=== PATIENT | female | born 1980 | race African-American/Black ===

== ENCOUNTER → 2023-01-23 08:31 | Outpatient (BNVA) | payer OTHER, SELFPAY | PROVIDERS: Visit Provider Physician Assistant ==

== ENCOUNTER 2023-02-14 08:26 | Outpatient (AMB) | payer OTHER, SELFPAY ==
--- NOTE | 2023-02-14 08:29 | MHC.OFFVISWM ---
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 No bariatric provider for any years wants help to reach about 175 lbs. She reports first being concerned about her weight about 2014. No reflux, ocassional nausea no emesis. She lives with her and 2 children. . She works 6 days per week - over 4 jobs. M- F 7a - 3pm then [employer] in evenings. 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 Sometiems doreen [facility] braden She wakes at: 6am bed at 12 - 1 am. Breakfast: 8am - Crystal light. Coffee a few days per week with cream and sugar. 9am - piece of fruit or cracker or toast with butter or PB. Lunch: 11 am - 2pm - sometimes bring food - restaurant 3-4 d/ week. Bowl from [employer], or kids meal with fries . water. Dinner: 5pm -dinner if ate lunch early - (2-4 tomatoes) tomato salad with 6 oz fish or chicken with 6 oz rice. water. 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 Other days may walk/run 3 miles in 40 minutes. 200 - 400 calories BP is high and will discuss with PCP - needs BP monitor at home. Last mammogram: up to date Last pap smear: up to date control method: none SHIELA: 2 ESS:4 GERD0: QOL:50 Physical Exam Const General: cooperative, no acute distress and well developed Nutritional Appearance: obese Orientation/consciousness: patient oriented x3 HEENT Head: Yes normal to inspection Neck Neck: Yes normal visual inspection Thyroid: Thyroid normal Resp Effort & Inspection: normal respiratory effort Auscultation: clear to auscultation bilaterally Cardio Rate: regular rate Rhythm: regular rhythm Heart sounds: S1 normal heart sound present, S2 normal heart sound present and no murmurs GI Inspection: No distended, Yes obesity and Yes scar (multiple laparoscopic scars) Palpation (GI): Soft to palpation, nontender and no guarding Skin General skin exam: no rashes or lesions noted and other (warm and dry) Wounds: no wounds Hair: normal Neuro General: patient oriented x3 Extrem General: Yes no pedal edema and Yes no calf tenderness Psych Attitude: cooperative Thought process: Normal thought process present Thought content: Normal thought content present Insight: Good insight present (Psych) Judgement: Good judgement present (Psych) Assessment & Plan Assessment & Plan (1) Morbid obesity: Code(s): E66.01 - Morbid (severe) obesity due to excess calories Plan: This is a 42 yo woman who is s/p GBP who was 6 months after surgery and never lost adequate weight. She is interested in revison surgery. Blood work, h pylori,, Abd ULS and UGI have been ordered. She is being scheduled for RD and BH initial consultations. She will start SWL classes and watch at 3 classes before her next appt with Erin. Will do h pylori once started meal plan and decreased GERD symptoms. Will call PCP today regarding high BP. Will obtain OR records from [facility]. 1. Adequate sleep of 7-8 hours per night discussed 2. 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 2 d/week - 40 calorie run/walks The importance of avoiding and breast feeding for at least 18 months after bariatric surgery was discussed in the information session and was reinforced today. NEEDS contraceptio if has revision Pt will purchase body composition analyzer (recommended list given to patient) and weight herself weekly. Next appt with me in 3 weeks. Text me with any questions and weekly weights. Patient is morbidly obese and is not considered stable at this time.?I spent a total of 60 minutes reviewing/updating records, examining the patient and counseling the patient on weight management as detailed above. (2) S/P gastric bypass: Code(s): Z98.84 - Bariatric surgery status (3) GERD (gastroesophageal reflux disease): Code(s): K21.9 - Gastro-esophageal reflux disease without esophagitis Coding Level of Care Code New Pt Level 5 (78646) Diagnoses Morbid obesity E66.01 S/P gastric bypass Z98.84 GERD (gastroesophageal reflux disease) K21.9
[2023-02-14 08:36] VITALS: BP 148/94; PULSE 60; TEMP 35.8; O2SAT 95; BMI 40.2
== END 2023-02-14 09:37 | disposition home or self-care (01) ==
PROVIDERS: Visit Provider Physician Assistant
DX: E66.01 Morbid (severe) obesity due to excess calories (principal); Z68.41 Body mass index [BMI] 40.0-44.9, adult; Z98.84 Bariatric surgery status; K21.9 Gastro-esophageal reflux disease without esophagitis
CPT/HCPCS: 99205

== ENCOUNTER → 2023-02-14 08:26 | Outpatient (BNVA) | payer OTHER, SELFPAY | PROVIDERS: Visit Provider Physician Assistant | DX: E66.01 Morbid (severe) obesity due to excess calories (principal); K21.9 Gastro-esophageal reflux disease without esophagitis; Z98.84 Bariatric surgery status; Z68.41 Body mass index [BMI] 40.0-44.9, adult | CPT/HCPCS: 99202 ==

== ENCOUNTER 2023-03-12 11:22 | Outpatient (AMB) | payer OTHER, SELFPAY ==
--- NOTE | 2023-03-12 11:05 | MHC.WMTHER ---
Intake Intake Visit Reasons: VIDEO BH Intake Allergies No Known Allergies Allergy (Verified 01/23/23 08:53) Behavioral Health Assessment Weight Management Therapy Therapy Notes Details Pt is looking to have weight loss surgery to help improve her health and quality of life. She stated that she is tired of being fat . She denied any mental health history however is in therapy to help with life stressors. She has no history of problems with drugs or alcohol, and no history of inpatient psychiatric admissions. Presenting Concerns Referral Source provider Reason for referral weight loss surgery evaluation Precipitating Event obesity Living Situation Current Living Situation Own At risk of losing current housing? No Satisfied with current living situation? Yes Comments Pt lives with her and children ages 7 and 10. Food/Weight/Diet Expectations of change weight loss and maintenance. History/Relationship with food Patient denied any binge eating. She stated that her biggest struggle is sweets, soda in the past, sugar , can go all day without food but will have dessert. Also would skip meals. History/Relationship with weight Pt was 273 at her heaviest. History/Relationship with dieting 2011 GBP in [place] and went down to 199 and then had a baby 6 months later. Pt stated that her weight fluctuates. Binge Eating Do you frequently eat large amounts of food in short periods of time, not feeling physically hungry? No Do you feel out of control when you eat a large amount of food in a short period of time? No Do you eat large amounts of food rapidly and typically alone? No Night Eating Do you wake up at least once during the night to eat? No If you wake up in the night, do you find that it is necessary to eat something in order to fall back asleep? No Do you have little or no appetite in the morning and feel very hungry in the evening, often overeating between dinner and when you go to bed? Yes Social History Family history and relationship Pt is to her second for 18 months and has two children with her previous that she shares custody. Parental/Familial tare weigher obligations two children. Developmental history and status no issues. Social support best friend, clinicians who she is also friends, manager business process, and sister. Cultural/Ethnic information Black Legal Involvement and History Current or historical involvement with the legal system? none reported Education Highest grade completed masters in social work Preferred learning style Auditory, Verbal, Written, Learn by doing and Visual Currently enrolled in educational program? No Interested in further educational program? 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 No Meaningful activities workouts with personal insurance advisor 3x's a week. Financial Situation Describe current financial situation Comfortable and Occasional struggle Financial assistance? None Service Service? No Mental Health and Addiction Treatment Current/Past substance abuse? No Current/Past addictive behavior concerns? No Medical and Physical Health Summary Physical exam in the last year? Yes Pain Screening Current pain? No Pain in the last few months? No Medications Is the patient compliant with medications? Not applicable Does the patient have Vergara Guardian in place? Not applicable Does the patient use complimentary health approaches? No Trauma/Abuse History History of trauma? No Questionnaires PHQ-9 Over the last 2 weeks, how often have you been bothered by any of the following problems? 1. Little interest or pleasure in doing things: not at all 2. Feeling down, depressed, or hopeless: not at all 3. Trouble falling or staying asleep, or sleeping too much: more than half the days 4. Feeling tired or having little energy: more than half the days 5. Poor appetite or overeating: several days 6. Feeling bad about yourself - or that you are a failure or have let yourself or your family down: not at all 7. Trouble concentrating on things, such as reading the newspaper or watching television: not at all 8. Moving or speaking so slowly that other people could have noticed. Or the opposite - being so fidgety or restless that you have been moving around a lot more than usual: not at all 9. Thoughts that you would be better off or of hurting yourself in some way: not at all Total score: 5 Depression Screening Interpretation: Negative Source: Developed by Drs. Iggy Bansal, Pam Crawford, William Ramirez and colleagues, with an educational jackie from [employer]. Binge Eating Scale Group 1 A. I don't feel self-conscious about my wt. or body size when I'm with others. B. I feel concerned about how I look to others, but it normally does not make me fell disappointed with myself C. I do get self-conscious about my appearance and wt. which makes me feel disappointed in myself. D. I feel very self-conscious about my wt. and frequently I feel intense shame and disgust for myself. I try to avoid social contacts because of my self-consciousness. Response Group 1: A Group 2 A. I don't have any difficulty eating slowly in the proper manner. B. Although I seem to gobble down foods, I don't end up feeling stuffed because of eating to much. C. At times, I tend to eat quickly and then, I feel uncomfortably full afterwards. D. I have the habit of bolting down my food, without really chewing it. When this happens I usually feel uncomfortably stuffed because I've eaten to much. Response Group 2: A Group 3 A. I feel capable to control my eating urges when I want to. B. I feel like I have failed to control my eating more than the average person. C. I feel utterly helpless when it comes to feeling in control of my eating urges. D. Because I feel so helpless about controlling my eating I have become very desperate about trying to get control. Response Group 3: A Group 4 A. I don't have the habit of eating when I'm bored. B. I sometimes eat when I'm bored, but often I'm able to get busy and get my mind off food. C. I have a regular habit of eating when I'm bored, but occasionally, I can use some other activity to get my mind off eating. D. I have a strong habit of eating when I'm bored. Nothing seems to help me breath the habit. Response Group 4: B Group 5 A. I'm usually physically hungry when I eat something. B. Occasionally, I eat something on impulse even though I really am not hungry. C. I have the regular habit of eating foods, that I might not really enjoy, to satisfy a hungry feeling even though physically, I don't need the food. D. Although I'm not physically hungry, I get a hungry feeling in my mouth that only seems to be satisfied when I eat a food, like sandwich, that fills my mouth. Sometimes, when I eat the food to satisfy my mouth hunger, I then spit the food out so I won't gain weight. Response Group 5: A Group 6 A. I don't feel any guilt or self-hate after I overeat. B. After I overeat, occasionally I feel guilt or self-hate. C. Almost all the time I experience strong guilt or self-hate after I overeat. Response Group 6: A Group 7 A. I don't lose total control of my eating when dieting even after periods when I overeat. B. Sometimes when I eat a forbidden food on a diet, I feel like I blew it and eat even more. C. Frequently, I have the habit of saying to myself, I've blown it now, why not go all the way, when I overeat on a diet. When that happens I eat more. D. I have a regular habit of starting a strict diets for myself but I break the diets by going on an eating binge. My life seems to be either a feast or famine. Response Group 7: A Group 8 A. I rarely eat so much food that I feel uncomfortably stuffed afterwards. B. Usually about once a month, I each such a quantity of food, I end up feeling very stuffed. C. I have regular periods during the month when I eat large amounts of food, either at mealtime or at snacks. D. I eat so much food that I regularly feel quite uncomfortable after eating and sometimes a bit nauseous. Response Group 8: A Group 9 A. My level of calorie intake does not go up very high or go down very low on a regular basis. B. Sometimes after I overeat, I will try to reduce my caloric intake to almost nothing to compensate for the excess calories I've eaten. C. I have a regular habit of overeating during the night. It seems that my routine is not to be hungry in the morning but overeat in the evening. D. In my adult years, I have had week-long periods where I practically starve myself. This follows periods when I overeat. It seems I live a life of either feast or famine. Response Group 9: A Group 10 A. I usually am able to stop eating when I want to. I know when enough is enough. B. Every so often, I experience a compulsion to eat which I can't seem to control. C. Frequently, I experience strong urges to eat which I seem unable to control, but at other times I can control my eating urges. D. I feel incapable of controlling urges to eat. I have a fear of not being able to stop eating voluntarily. Response Group 10: A Group 11 A. I don't have any problem stopping eating when I feel full. B. I usually can stop eating when I feel full but occasionally overeat leaving me feeling uncomfortably stuffed. C. I have a problem stopping eating once I start and usually I feel uncomfortably stuffed after I eat a meal. D. Because I have a problem not being able to stop eating when I want, I sometimes have to induce vomiting to relieve my stuffed feeling. Response Group 11: A Group 12 A. I seem to eat just as much when I'm with others, Family social gatherings as when I'm by myself. B. Sometimes, when I'm with other persons, I don't eat as much as I want to eat because I'm self-conscious about my eating. C. Frequently, I eat only a small amount of food when others are present, because I'm very embarrassed about my eating. D. I feel so ashamed about overeating that I pick times to overeat when I know no one will see me. I feel like a closet eater. Response Group 12: A Group 13 A. I eat three meals a day with only an occasional between meal snack. B. I eat 3 meals a day, but I also normally snack between meals. C. When I am snacking heavily, I get in the habit of skipping regular meals. D. There are regular periods when I seem to be continually eating, with no planned meals. Response Group 13: A Group 14 A. I don't think much about trying to control unwanted eating urges. B. At least some of the time, I feel my thoughts are pre-occupied with trying to control my eating urges. C. I feel that frequently I spend much time thinking about how much I ate or about trying not to eat anymore. D. It seems to me that most of my waking hours are pre-occupied by thoughts about eating or not eating. I feel like I'm constantly struggling not to eat. Response Group 14: A Group 15 A. I don't think about food a great deal. B. I have strong craving for food but they last only for brief periods of time. C. I have days when I can't seem to think about anything else but food. D. Most of my days seem to be pre-occupied with thoughts about food. I feel like I live to eat. Response Group 15: A Group 16 A. I usually know whether or not I'm physically hungry. I take the right portion of food to satisfy me. B. Occasionally, I feel uncertain about knowing whether or not I'm physically hungry. A these times it's hard to know how much food I should take to satisfy me. C. Even though I might know how many calories I should eat, I don't have any idea what is a normal amount of food for me. Response Group 16: A Binge Eating Score: 1 Score less than 17 Minimal Risk Score between 18-26 Moderate Risk Score between 27-46 High Risk Assessment & Plan Assessment & Plan (1) Adjustment disorder, unspecified: Code(s): F43.20 - Adjustment disorder, unspecified (2) Morbid obesity: Code(s): E66.01 - Morbid (severe) obesity due to excess calories (3) S/P gastric bypass: Code(s): Z98.84 - Bariatric surgery status Plan Patient has no serious mental health barriers. She is cleared for surgery. Telehealth Telehealth Location of provider rendering services: other Location of patient: other Patient Identification confirmed using: Name, : Yes Telehealth method: video Patient verbally consented to treatment: Yes Patient verbally consented to billing insurance company: Yes Patient informed of any privacy concerns related to visit: Yes Minutes spent on Phone/Video with Pt.: 30 Coding Level of Care Code Tele Psy Diag Eval (47245) Diagnoses Adjustment disorder, unspecified F43.20 Morbid obesity E66.01 S/P gastric bypass Z98.84 Time Spent (min) 30
== END 2023-03-12 11:30 | disposition home or self-care (01) ==
LOC: HO.HBST 11:22
PROVIDERS: Visit Provider Counselor Mental Health
DX: F43.20 Adjustment disorder, unspecified (principal); E66.01 Morbid (severe) obesity due to excess calories; Z98.84 Bariatric surgery status
CPT/HCPCS: 90791

== ENCOUNTER → 2023-03-12 11:22 | Outpatient (BNVA) | payer OTHER, SELFPAY | PROVIDERS: Visit Provider Counselor Mental Health ==

== ENCOUNTER 2023-03-14 09:28 | Outpatient (AMB) | payer OTHER, SELFPAY ==
--- NOTE | 2023-03-14 09:38 | A.OFFVIS_ITS ---
Intake VS Expanded 03/14/23 09:46 Height 5 ft 4 in Weight 234 lb 6.4 oz BMI 40.2 BP 175/97 H Blood Pressure Location Rt brachial Blood Pressure Position Sitting Pulse 75 Pulse Source Pulse Oximeter Temp 97.5 F Temperature Source Tympanic Pulse Oximetry 94 Oxygen Delivery Method Room Air Body Fat 100.0 Body Fat Percentage 42.7 Free Fat Mass 134.2 Muscle Mass 127.4 Water Mass 96.0 BMR 1,877 Intake Visit Reasons: (OV) F/U SWL Allergies No Known Allergies Allergy (Verified 03/14/23 09:41) Medication List - Last Reconciled 03/14/23 by Ava Ramos PA-C cholecalciferol (vitamin D3) 10 mcg PO DAILY cyanocobalamin (vitamin B-12) 50 mcg PO DAILY folic acid 1 mg PO DAILY HPI HPI Comments History of Present Illness Details This is the patients second appt for revision of GBP. Starting weight was 234 lbs on 02/14/23. TBWL is 0 lbs Meal plan: started meal plan 2 weeks ago 7:30 am- yogurt, sometimes with Premier shake or shake alone with coffee 11 am - chicken salad or PB sandwich. Cr ystal Light 5pm - pasta with tomato sauce and hambur randy meat. OR PB sandwich, last night pork chop with macaroni and vegetables Crystal Light After dinnner - sugar free jello snacks - of plantain chips or banana Exercise plan: 3d /week of ST with hop strainer. Walk 3miles in 45 minutes - 2 d/ week. Pre op work up completed as follows: SWL classes - 08 appts - dawson Johnson RD appts - missed appt H pylori - not done yet Labs, CXR and ECG - not done yet ULS and UGI - not done yet Assessment & Plan Assessment & Plan (1) Morbid obesity: Code(s): E66.01 - Morbid (severe) obesity due to excess calories Plan: Pt has not started our meal plan yet, is very busy with 4 jobs and 2 children. We discussed easy ways to make the plan work for her. 7:30 - shake 11am - shake (or meal) 3pm - bar or yogurt 7pm - meal of 4oz/4 oz or shake if meal at 11 am. Exercise - no changes for now. Will get labs/CXR/ECG done today and will have ULS and UGI ordereded today. H pylori today Rescheduel appt with Erin and start watching SWL classes. Next appt with me in 3 weeks on telephone. Patient is morbidly obese and is not considered stable at this time. I spent 30minutes in total with patient reviewing/updating records, examining the patient and counseling the patient on weight management as detailed above. (2) S/P gastric bypass: Code(s): Z98.84 - Bariatric surgery status (3) GERD (gastroesophageal reflux disease): Code(s): K21.9 - Gastro-esophageal reflux disease without esophagitis Orders: Orders Complete Blood Count Auto Diff Today E66.01 - Morbid (severe) obesity due to excess calories, K21.9 - Gastro-esophageal reflux disease without esophagitis, Z01.818 - Encounter for other preprocedural examination, Z98.84 - Bariatric surgery status Vitamin B12 and Folate Today E66.01 - Morbid (severe) obesity due to excess calories, K21.9 - Gastro-esophageal reflux disease without esophagitis, Z01.818 - Encounter for other preprocedural examination, Z98.84 - Bariatric surgery status Zinc Today E66.01 - Morbid (severe) obesity due to excess calories, K21.9 - Gastro-esophageal reflux disease without esophagitis, Z01.818 - Encounter for other preprocedural examination, Z98.84 - Bariatric surgery status Comprehensive Met. Panel Today E66.01 - Morbid (severe) obesity due to excess calories, K21.9 - Gastro-esophageal reflux disease without esophagitis, Z01.818 - Encounter for other preprocedural examination, Z98.84 - Bariatric surgery status Vitamin B1 Today E66.01 - Morbid (severe) obesity due to excess calories, K21.9 - Gastro-esophageal reflux disease without esophagitis, Z01.818 - Encounter for other preprocedural examination, Z98.84 - Bariatric surgery status Vitamin A Today E66.01 - Morbid (severe) obesity due to excess calories, K21.9 - Gastro-esophageal reflux disease without esophagitis, Z01.818 - Encounter for other preprocedural examination, Z98.84 - Bariatric surgery status C Reactive Protein Today E66.01 - Morbid (severe) obesity due to excess calories, K21.9 - Gastro-esophageal reflux disease without esophagitis, Z01.818 - Encounter for other preprocedural examination, Z98.84 - Bariatric surgery status Ferritin Today E66.01 - Morbid (severe) obesity due to excess calories, K21.9 - Gastro-esophageal reflux disease without esophagitis, Z01.818 - Encounter for other preprocedural examination, Z98.84 - Bariatric surgery status PTHI Today E66.01 - Morbid (severe) obesity due to excess calories, K21.9 - Gastro-esophageal reflux disease without esophagitis, Z01.818 - Encounter for other preprocedural examination, Z98.84 - Bariatric surgery status TSH reflex Free T4 Today E66.01 - Morbid (severe) obesity due to excess calories, K21.9 - Gastro-esophageal reflux disease without esophagitis, Z01.818 - Encounter for other preprocedural examination, Z98.84 - Bariatric surgery status H Pylori Breath Test Today E66.01 - Morbid (severe) obesity due to excess calories, K21.9 - Gastro-esophageal reflux disease without esophagitis, Z01.818 - Encounter for other preprocedural examination, Z98.84 - Bariatric surgery status US abdomen comp w elastography Today E66.01 - Morbid (severe) obesity due to excess calories, K21.9 - Gastro-esophageal reflux disease without esophagitis, Z01.818 - Encounter for other preprocedural examination, Z98.84 - Bariatric surgery status XR chest 2V Today E66.01 - Morbid (severe) obesity due to excess calories, K21.9 - Gastro-esophageal reflux disease without esophagitis, Z01.818 - Encounter for other preprocedural examination, Z98.84 - Bariatric surgery status ECG 12 lead EKG Today E66.01 - Morbid (severe) obesity due to excess calories, K21.9 - Gastro-esophageal reflux disease without esophagitis, Z01.818 - Encounter for other preprocedural examination, Z98.84 - Bariatric surgery status FL upper GI w air Today E66.01 - Morbid (severe) obesity due to excess calories, K21.9 - Gastro-esophageal reflux disease without esophagitis, Z01.818 - Encounter for other preprocedural examination, Z98.84 - Bariatric surgery status Insulin Today E66.01 - Morbid (severe) obesity due to excess calories, K21.9 - Gastro-esophageal reflux disease without esophagitis, Z01.818 - Encounter for other preprocedural examination, Z98.84 - Bariatric surgery status Lipid Panel Today E66.01 - Morbid (severe) obesity due to excess calories, K21.9 - Gastro-esophageal reflux disease without esophagitis, Z01.818 - Encounter for other preprocedural examination, Z98.84 - Bariatric surgery status IRON PROFILE Today E66.01 - Morbid (severe) obesity due to excess calories, K21.9 - Gastro-esophageal reflux disease without esophagitis, Z01.818 - Encounter for other preprocedural examination, Z98.84 - Bariatric surgery status Vitamin D 25-OH Total Today E66.01 - Morbid (severe) obesity due to excess calories, K21.9 - Gastro-esophageal reflux disease without esophagitis, Z01.818 - Encounter for other preprocedural examination, Z98.84 - Bariatric surgery status Hemoglobin A1c Today E66.01 - Morbid (severe) obesity due to excess calories, K21.9 - Gastro-esophageal reflux disease without esophagitis, Z01.818 - Encounter for other preprocedural examination, Z98.84 - Bariatric surgery status Referrals Nutrition/Dietitian Referral E66.01 - Morbid (severe) obesity due to excess calories, K21.9 - Gastro-esophageal reflux disease without esophagitis, Z01.818 - Encounter for other preprocedural examination, Z98.84 - Bariatric surgery status Behavioral Health Referral E66.01 - Morbid (severe) obesity due to excess calories, K21.9 - Gastro-esophageal reflux disease without esophagitis, Z01.818 - Encounter for other preprocedural examination, Z98.84 - Bariatric surgery status Coding Level of Care Code Est Pt Level 4 (52747) Diagnoses Morbid obesity E66.01 S/P gastric bypass Z98.84 GERD (gastroesophageal reflux disease) K21.9
[2023-03-14 09:46] VITALS: BP 175/97; PULSE 75; TEMP 36.4; O2SAT 94; BMI 40.2
== END 2023-03-14 10:14 | disposition home or self-care (01) ==
PROVIDERS: Visit Provider Physician Assistant
DX: E66.01 Morbid (severe) obesity due to excess calories (principal); Z68.41 Body mass index [BMI] 40.0-44.9, adult; Z90.3 Acquired absence of stomach [part of]; Z98.84 Bariatric surgery status; K21.9 Gastro-esophageal reflux disease without esophagitis
CPT/HCPCS: 99214

== ENCOUNTER 2023-03-14 09:28 | Outpatient (REF) | payer OTHER, SELFPAY ==
--- NOTE | ~2023-03-14 | XR_ITS ---
EXAMINATION: XR CHEST CLINICAL INFORMATION: Obesity. COMPARISON: None available. TECHNIQUE: 2 views of the chest were obtained. FINDINGS: The lungs are clear. The cardiomediastinal silhouette is normal in size. There is no pleural effusion or pneumothorax. No acute osseous abnormality. XR/XR chest 2V IMPRESSION: No acute cardiopulmonary findings.
--- NOTE | 2023-03-14 10:43 | ECG_ITS ---
Test Reason : mor obesity Blood Pressure : / mmHG Vent. Rate : 055 BPM Atrial Rate : 055 BPM P-R Int : 124 ms QRS Dur : 082 ms QT Int : 454 ms P-R-T Axes : 033 038 025 degrees QTc Int : 434 ms Sinus bradycardia Otherwise normal ECG No previous ECGs available Referred By: Ava Ramos Electronically Signed By:FAVIO JOHNSON
[2023-03-14 10:45] LABS: MANUAL DIFF FLAG NO
[2023-03-14 10:58] LABS: Basophils Percent Auto 0.5 % (0-2); Eosinophils Absolute Auto 0.2 X10*3/uL (0.0-0.4); Eosinophils Percent Auto 2.4 % (0-4); Hematocrit 39.4 % (37.0-47.0); Hemoglobin 12.8 g/dl (12.0-16.0); Imm Gran Abs Auto 0.01 X10*3/uL (0.00-0.03); Imm Gran Pct Auto 0.2 % (0.0-0.4); Lymphocytes Absolute Auto 1.1 X10*3/uL (1.2-4.9); Lymphocytes Percent Auto 15.9 % (20-40); Mean Corpuscular HGB Conc 32.5 g/dl (31.0-35.0); Mean Corpuscular Hemoglobin 29.2 pg (27.0-33.0); Mean Corpuscular Volume 89.7 fL (80.0-98.0); Mean Platelet Volume 9.6 fL (9.4-12.3); Monocytes Absolute Auto 0.6 X10*3/uL (0.1-1.2); Monocytes Percent Auto 9.3 % (2-11); Neutrophils Absolute Auto 4.8 x10*3/uL (2.0-8.3); Neutrophils Percent Auto 71.7 % (45-73); Platelet Count 302 X10*3/uL (160-400); Red Blood Count 4.39 X10*6/uL (4.20-5.50); Red Cell Distribution Width 12.2 % (11.0-16.0); White Blood Count 6.7 X10*3/uL (4.8-10.8)
[2023-03-14 11:38] LABS: Estimated Average Glucose 91 mg/dL; Hemoglobin A1c % 4.8 % (<6.0)
[2023-03-14 11:46] LABS: Alanine Aminotransferase 12 U/L (0-31); Albumin Level 3.7 g/dL (3.5-5.0); Alkaline Phosphatase 82 U/L (39-117); Anion Gap 10 (12-20); Aspartate Amino Transferase 16 U/L (5-31); Bilirubin Total 0.5 mg/dL (0.0-1.0); Blood Urea Nitrogen 13 mg/dL (9-16); C Reactive Protein 0.61 mg/dL (< or = 0.50); Calcium 8.8 mg/dL (8.4-10.2); Carbon Dioxide 25 mmol/L (22-29); Chloride 109 mmol/L (96-108); Cholesterol 118 mg/dL (<200); Estimated Glomerular Filt Rate > 60; Glucose Random 87 mg/dL (60-115); HDL Cholesterol 51 mg/dL (>40); Iron 32 mcg/dL (30-160); LDL Cholesterol Calculated 57 mg/dL (<100); Percent Iron Saturation 15 % (15-50); Potassium 4.1 mmol/L (3.3-5.1); Sodium 140 mmol/L (135-145); Total Iron Binding Capacity 212 mcg/dL (228-428); Total Protein 7.4 g/dL (6.5-8.0); Triglycerides 52 mg/dL (<150); Unsaturated Iron Binding 180 ug/dL
[2023-03-14 12:03] LABS: Ferritin 64 ng/mL (10-250); Insulin 7 uU/mL (2-29); TSH reflex Free T4 0.58 uIU/mL (0.32-4.0); Vitamin D 25-OH Total 28.6 ng/mL (>30)
[2023-03-14 12:08] LABS: Folate 5.8 ng/mL (> or = 4.0); Vitamin B12 838 pg/mL (200-900)
[2023-03-15 16:40] LABS: H Pylori Breath Test Negative (Negative)
[2023-03-18 14:38] LABS: Calcium (PTHI) 8.8 mg/dL (8.6-10.2); PTHI 126 pg/mL (16-77)
[2023-03-19 13:08] LABS: Zinc 42 mcg/dL (60-130)
[2023-03-21 06:04] LABS: Vitamin B1 8 nmol/L (8-30)
[2023-03-21 16:53] LABS: Vitamin A 24 mcg/dL (38-98)
== END 2023-03-14 09:29 | disposition home or self-care (01) ==
LOC: HO.LAB 09:28
PROVIDERS: PCP Internal Medicine; Visit Provider Physician Assistant
DX: Z01.818 Encounter for other preprocedural examination (principal); E66.01 Morbid (severe) obesity due to excess calories; K21.9 Gastro-esophageal reflux disease without esophagitis; Z71.3 Dietary counseling and surveillance; Z98.84 Bariatric surgery status; Z79.899 Other long term (current) drug therapy
CPT/HCPCS: 36415; 71046; 80053; 80061; 82306; 82607; 82728; 82746; 83013; 83036; 83525; 83540; 83970; 84425; 84443; 84590; 84630; 85025; 86140; 93005; 99211; 99212

== ENCOUNTER 2023-03-28 14:30 | Outpatient (AMB) | payer OTHER, SELFPAY ==
--- NOTE | 2023-03-28 13:16 | MHC.OFFVISWM ---
Intake VS Expanded 03/28/23 15:06 Height 5 ft 4 in Weight 237 lb 7 oz BMI 40.8 Intake Visit Reasons: VIDEO F/U SWL Allergies No Known Allergies Allergy (Verified 03/14/23 09:41) HPI HPI Comments History of Present Illness Details This is the patients third appt for revision of GBP. Starting weight was 234 lbs on 02/14/23. No weight loss yet. She states sheis hungry all of the time and then eats carbs to fill in between meal times. 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 6 miles in one day Pre op work up completed as follows: SWL classes - BH appts - Elizabeth, cleared RD appts - missed appt, now 04/09 H pylori - negative Labs - vitamin A and D, zinc low, PTH elevated normal calcium CXR and ECG - both normal, bradycardia ULS and UGI - both Nov . Assessment & Plan Assessment & Plan (1) Morbid obesity: Code(s): E66.01 - Morbid (severe) obesity due to excess calories Plan: Preparing for revision of GBP. No wegiht loss yet, hungry and snacking on carbs. Only sleeps 5 hours per night, contributing to hungry and carb cravings. 1. We discussed trying to sleep 7-8 hours per night 2. Have 1 meal, 2 shakes and 2 MR's per day each as close to 3 hours a[art as she can with her work schedule. - Constisten meal times 3. Check calories burned and goal of 2,000 kcal holloway per week. 4. Text me in a few days - whether this meal plan is working better for her and how many calories burning with exercise. Next appt 3 weeks with me , all appts reviewed. Patient is still morbidly obese and is not considered stable at this time. I spent 23 minutes in total speaking with the patient via video conference counseling , reviewing records and charting in patients chart. . (2) S/P gastric bypass: Code(s): Z98.84 - Bariatric surgery status (3) GERD (gastroesophageal reflux disease): Code(s): K21.9 - Gastro-esophageal reflux disease without esophagitis Telehealth Telehealth Location of provider rendering services: practice address Location of patient: address on file Patient Identification confirmed using: Name, : Yes Telehealth method: video Patient verbally consented to treatment: Yes Patient verbally consented to billing insurance company: Yes Patient informed of any privacy concerns related to visit: Yes Coding Level of Care Code Tele Est Pt Level 4 (08048) Diagnoses Morbid obesity E66.01 S/P gastric bypass Z98.84 GERD (gastroesophageal reflux disease) K21.9
[2023-03-28 15:06] VITALS: BMI 40.8
== END 2023-03-28 15:14 | disposition home or self-care (01) ==
LOC: HO.HBS 15:12
PROVIDERS: PCP Internal Medicine; Visit Provider Physician Assistant
DX: E66.01 Morbid (severe) obesity due to excess calories (principal); Z68.41 Body mass index [BMI] 40.0-44.9, adult; Z90.3 Acquired absence of stomach [part of]; Z98.84 Bariatric surgery status; K21.9 Gastro-esophageal reflux disease without esophagitis
CPT/HCPCS: 99213

== ENCOUNTER → 2023-04-09 15:14 | Outpatient (BNVA) | payer OTHER, SELFPAY | PROVIDERS: PCP Internal Medicine; Visit Provider Dietitian, Registered | DX: Z71.3 Dietary counseling and surveillance (principal) | CPT/HCPCS: 97802 ==

== ENCOUNTER 2023-04-25 09:27 | Outpatient (REF) | payer OTHER, SELFPAY ==
--- NOTE | ~2023-04-25 | US_ITS ---
EXAMINATION: US COMPLETE ABDOMEN WITH LIVER ELASTOGRAPHY CLINICAL INFORMATION: Obesity. COMPARISON: None available. TECHNIQUE: Real-time imaging of the abdominal viscera. Noninvasive ultrasound liver fibrosis assessment is performed using Rama ElastPQ point quantification shear wave elastography (2D-SWE) with a C5-2 MHz transducer. Multiple elastography samples are obtained. FINDINGS: PANCREAS: Normal. The visualized pancreatic head and body are normal in appearance. The remainder of the pancreas is obscured from visualization by the overlying bowel gas. ABDOMINAL AORTA: The proximal, middle, and distal aortic segments are normal in caliber. INFERIOR VENA CAVA: Visualized portions are normal. LIVER: Normal. The liver demonstrates normal size, contour and echogenicity. No focal lesion or intrahepatic biliary duct dilatation. The right lobe measures 13.8 cm in length. The left lobe measures 10.5 cm in length. Portal flow is towards the liver (hepatopetal). Shear wave liver elastography median stiffness is 1.47 m/s (reference: normal median stiffness is 1.3 m/s or less). IQR/median stiffness to assess sampling precision is 0.09 (reference: good quality data set is IQR/median stiffness of 0.15 or less). GALLBLADDER: There is a phrygian cap appearance. The gallbladder is physiologically distended without evidence of stones, sludge, polyps, wall thickening or pericholecystic fluid. COMMON BILE DUCT: Normal in caliber measuring 0.4 cm in diameter. RIGHT KIDNEY: At the interpolar aspect, a 1.0 cm benign, simple cyst is seen, which requires no imaging follow-up. No hydronephrosis. No renal calculi or focal parenchymal lesions. The kidney measures 9.8 cm in maximum dimension. LEFT KIDNEY: Normal. No hydronephrosis. No renal calculi or focal parenchymal lesions. The kidney measures 10.9 cm in maximum dimension. SPLEEN: Normal. The spleen measures 9.0 cm in maximum dimension. FREE FLUID: None. US/US abdomen comp w elastography IMPRESSION: Liver elastography: In the absence of other known clinical signs, measurements rule out compensated advanced chronic liver disease. If there are known clinical signs, further testing may be needed for confirmation. REFERENCE: Society of Radiologists in Ultrasound Liver Stiffness Thresholds (2020): LIVER STIFFNESS THRESHOLDS: *Liver Stiffness equal or less than 1.3 m/s: High probability of being normal. *Liver Stiffness less than 1.7 m/s: In the absence of other known clinical signs, rules out compensated advanced chronic liver disease. *Liver Stiffness 1.7-2.1 m/s: Suggestive of compensated advanced chronic liver disease but need further test for confirmation. *Liver Stiffness over 2.1 m/s: Rules in compensated advanced chronic liver disease. *Liver Stiffness over 2.4 m/s: Suggestive of clinically significant portal hypertension. QUALITY OF DATA SET: *IQR/Median value equal or less than 0.15 implies a quality data set. *IQR/Median value over 0.15 implies a poor quality data set. SIGNIFICANT CHANGE FROM PRIOR EXAM: Significant change if liver stiffness measurement is 10% or greater from prior exam. OTHER CONSIDERATIONS: The stage of liver fibrosis may be overestimated in the setting of acute hepatitis, liver inflammation, elevated liver function tests, hepatic vascular congestion, obstructive cholestasis, non-fasting state, and infiltrative diseases such as amyloidosis and lymphoma. In some patients with NAFLD, the liver stiffness thresholds for compensated advanced chronic liver disease may be lower. In causes other than viral hepatitis and NAFLD, liver stiffness thresholds are not well established.
--- NOTE | ~2023-04-25 | FL_ITS ---
EXAMINATION: XR FLUOROSCOPY UPPER GI WITH AIR CLINICAL INFORMATION: Pe-operative evaluation prior to bariatric intervention. Status post gastric bypass in 2010 . COMPARISON: None relevant. TECHNIQUE: Fluoroscopic air contrast upper GI examination was performed utilizing standard techniques with thin and thick barium and effervescent granules. Numerous spot images were obtained. In addition, numerous image hold fluoroscopic cine images were taken. FINDINGS: Dual and single contrast images of the esophagus demonstrate mildly patulous esophagus, otherwise normal in contour and mucosal pattern. No evidence of stricture, mass, or ulcerations identified. Esophageal peristalsis was normal. A small type I hiatal hernia is present. No significant gastroesophageal reflux was seen during the course of the examination and on reflux views. Dual contrast and single contrast images of the stomach demonstrated a ángela-en-Y gastric bypass. The gastrojejunostomy is patent. No apparent complication. The gastric pouch has a normal appearance and size. Barium flows to the gastric pouch into the ángela limb freely. No reflux into the excluded stomach or duodenum. The distal anastomosis is not well evaluated on this exam. The imaged jejunum has a normal fold pattern and caliber. FLUOROSCOPY TIME: 2 minutes 58 seconds Number of Spot Images: 6 Number of cine: 5 DOSE AREA PRODUCT: 2322 uGy-m2 (microgray-meter squared) FL/FL upper GI w air IMPRESSION: 1. Status post gastric bypass. Normal-appearing gastric pouch and gastrojejunostomy. No reflux into the excluded duodenum or stomach. 2. Small type I hiatal hernia. 3. Minimally patulous esophagus, which is otherwise normal. No definite gastroesophageal reflux noted during the course of the exam. This procedure was performed by Nico Shepherd PA-C and supervised by Dr. Frances
== END 2023-04-25 09:28 | disposition home or self-care (01) ==
LOC: HO.US 09:27
PROVIDERS: PCP Internal Medicine; Visit Provider Physician Assistant
DX: Z01.818 Encounter for other preprocedural examination (principal); E66.01 Morbid (severe) obesity due to excess calories; K21.9 Gastro-esophageal reflux disease without esophagitis; Z98.84 Bariatric surgery status
CPT/HCPCS: 74246; 76705; 76981

== ENCOUNTER → 2023-04-25 09:29 | Outpatient (BNV) | payer OTHER, SELFPAY | PROVIDERS: PCP Internal Medicine; Visit Provider Radiology Diagnostic Radiology | DX: E66.01 Morbid (severe) obesity due to excess calories (principal); Z01.818 Encounter for other preprocedural examination | CPT/HCPCS: 74246 ==

== ENCOUNTER 2023-05-01 15:30 | Outpatient (AMB) | payer OTHER, SELFPAY ==
--- NOTE | 2023-05-01 11:18 | MHC.OFFVISWM ---
Intake VS Expanded 05/01/23 15:42 Height 5 ft 4 in Weight 241 lb BMI 41.4 Intake Visit Reasons: VIDEO F/U SWL Allergies No Known Allergies Allergy (Verified 03/14/23 09:41) Medication List - Last Reconciled 05/01/23 by Ava Ramos PA-C amlodipine 5 mg PO DAILY cholecalciferol (vitamin D3) 10 mcg PO DAILY cyanocobalamin (vitamin B-12) 50 mcg PO DAILY folic acid 1 mg PO DAILY vitamin A palmitate 3,000 mcg PO DAILY 2 weeks zinc gluconate 30 mg PO DAILY HPI HPI Comments History of Present Illness Details Pt is preparing for revision of previous GBP. 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 Sleeping 5-6 hours per week. She recently started on amlodipine by her PCP - after ED visit for extreme HTN. Meal plan: feels hungry all the time. In general has 2 shakes and 1 meal per day - divided over 2 eating periods Forgets to eat often Coffee - twice during the day - various times. Shake - 7am (30 minutes) - but only 3-4 days week 10am - shake - will have shake - but then wants to eat 11 am- chicken with vegetables (leftovers), not measuring portion size -6 oz?? 5-6 pm - finish her lunch or a shake if driving Exercise - fitness trainer 3d/ week. was walking outside and now does other activities. We do not have the OR records from [facility] from her GBP yet. Pre op work up completed as follows: SWL classes - ? appts - Elizabeth, dawson RD appts - missed appt, now 04/09, rescheduled to 05/22 H pylori - negative Labs - vitamin A and D, zinc low, PTH elevated normal calcium CXR and ECG - both normal, bradycardia UGI - 1. Status post gastric bypass. Normal-appearing gastric pouch and gastrojejunostomy. No reflux into the excluded duodenum or stomach. 2. Small type I hiatal hernia. 3. Minimally patulous esophagus, which is otherwise normal. No definite gastroesophageal reflux noted during the course of the exam. ULS - not read yet Assessment & Plan Assessment & Plan (1) Morbid obesity: Code(s): E66.01 - Morbid (severe) obesity due to excess calories Plan: S/p GBP with minimal weight loss. Pt has been consistently gaining weight since starting our program. 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 She works with a fitness trainer but is not burning fat. Her pre op workup is completed except for SWL classes and appointments with Erin, but she is far from ready. We discussed ideas for changes she needs to make - declines appts with Elizabeth (she is a provider herslef). She understands that much of what is happening for her is stress related. She will have appt with Erin on 05/22, de 2 weeks later and will re-evaluate her progress at that time. Patient is still morbidly obese and is not considered stable at this time. I spent 30 minutes in total speaking with the patient via video conference counseling , reviewing records and charting in patients chart. . (2) S/P gastric bypass: Code(s): Z98.84 - Bariatric surgery status Telehealth Telehealth Location of provider rendering services: practice address Location of patient: address on file Patient Identification confirmed using: Name, : Yes Telehealth method: voice only Patient verbally consented to treatment: Yes Patient verbally consented to billing insurance company: Yes Patient informed of any privacy concerns related to visit: Yes Coding Level of Care Code Tele Est Pt Level 4 (20718) Diagnoses Morbid obesity E66.01 S/P gastric bypass Z98.84
[2023-05-01 15:42] VITALS: BMI 41.4
== END 2023-05-01 16:10 | disposition home or self-care (01) ==
LOC: HO.HBS 16:02
PROVIDERS: PCP Internal Medicine; Visit Provider Physician Assistant
DX: E66.01 Morbid (severe) obesity due to excess calories (principal); Z98.84 Bariatric surgery status
CPT/HCPCS: 99214

== ENCOUNTER → 2023-05-01 15:30 | Outpatient (BNVA) | payer OTHER, SELFPAY | PROVIDERS: PCP Internal Medicine; Visit Provider Physician Assistant ==

== ENCOUNTER 2023-05-22 15:45 | Outpatient (AMB) | payer OTHER, SELFPAY ==
--- NOTE | 2023-05-22 15:37 | MHC.AMNUTRGE ---
Intake Intake Visit Reasons: VIDEO F/U SWL Allergies No Known Allergies Allergy (Verified 03/14/23 09:41) HPI Nutrition Diet Assmnt Details Pt states she has not been using her shakes or bars. Doesn't have an appetite and reports My life has been completely flipped upside down She feels that this is not the right time to pursue surgery Most Recent Diabetes Results: Cholesterol 118 mg/dL (<200) 03/14/23 HDL Cholesterol 51 mg/dL (>40) 03/14/23 Triglycerides 52 mg/dL (<150) 03/14/23 Creatinine 0.90 mg/dL (0.5-1.4) 03/14/23 Blood Urea Nitrogen 13 mg/dL (9-16) 03/14/23 Sodium 140 mmol/L (135-145) 03/14/23 Potassium 4.1 mmol/L (3.3-5.1) 03/14/23 Chloride 109 mmol/L (96-108) H 03/14/23 Carbon Dioxide 25 mmol/L (22-29) 03/14/23 Calcium 8.8 mg/dL (8.4-10.2) 03/14/23 AST 16 U/L (5-31) 03/14/23 ALT 12 U/L (0-31) 03/14/23 Total Protein 7.4 g/dL (6.5-8.0) 03/14/23 Albumin 3.7 g/dL (3.5-5.0) 03/14/23 Assessment & Plan Assessment & Plan (1) Morbid obesity: Code(s): E66.01 - Morbid (severe) obesity due to excess calories Plan Pt is withdrawing from [facility] at this time Telehealth Telehealth Location of provider rendering services: practice address Location of patient: address on file Patient Identification confirmed using: Name, : Yes Telehealth method: voice only Patient verbally consented to treatment: Yes Patient verbally consented to billing insurance company: Yes Patient informed of any privacy concerns related to visit: Yes Minutes spent on Phone/Video with Pt.: 10 Coding Level of Care Code Nutr Indiv Subseq ([id number]) Diagnoses Morbid obesity E66.01 Time Spent (min) 10
== END 2023-05-22 15:46 | disposition home or self-care (01) ==
LOC: HO.HBS 15:45
PROVIDERS: PCP Internal Medicine; Visit Provider Dietitian, Registered
DX: E66.01 Morbid (severe) obesity due to excess calories (principal)

== ENCOUNTER → 2023-05-22 15:45 | Outpatient (BNVA) | payer OTHER, SELFPAY | PROVIDERS: PCP Internal Medicine; Visit Provider Dietitian, Registered | DX: E66.01 Morbid (severe) obesity due to excess calories (principal) | CPT/HCPCS: 97803 ==